=== PATIENT | female | born 1985 ===

== ENCOUNTER 2017-04-24 08:31 | Outpatient (CLI) | payer OTHER, MEDICAID ==
--- NOTE | 2017-04-24 10:44 | XRay Report ---
XRAY RIGHT HAND THREE VIEWS: 04/24/17 08:31:00 CLINICAL: Hand pain. FINDINGS: Mild osteopenia. The distal phalanx of the thumb is fragmented into separate fragments. There is also a large defect with bone missing from the medial aspect of the distal fragment. There is also a bony defect with following out of the the proximal phalanx of the middle finger at the third MCP joint. Both of these appear to be remote posttraumatic changes. No acute fracture or dislocation. Moderate periarticular osteopenia. 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 The rest of the joint spaces are normal. Normal soft tissues. IMPRESSION: Probable remote fractures with bony defects involving the distal phalanx of the thumb and the proximal phalanx of the middle finger. No acute changes.
== END 2017-04-24 08:32 | disposition home or self-care (01) ==
LOC: SPVIMAG 08:31
PROVIDERS: ATTEND Orthopaedic Surgery Sports Medicine
DX: M18.9 Osteoarthritis of first carpometacarpal joint, unspecified (principal); M85.841 Other specified disorders of bone density and structure, right hand